=== PATIENT | female | born 1960 | race Two or more races ===

== ENCOUNTER → 2017-01-05 | Outpatient (CLI) | payer OTHER ==
--- NOTE | 2017-01-05 13:31 | REPMRS ---
Patient History The patient states she had a clinical breast exam in Family history of breast cancer in mother at age 65. Digital Woman Screen Mammo: January 05, 2017 - Exam #: [id number] Bilateral CC and MLO view(s) were taken. Technologist: Breanna Harris, Technologist Prior study comparison: September 02, 2015, digital woman screen mammo performed at [facility] to [facility]. June 25, 2014, digital woman screen mammo performed at [facility] to [facility]. FINDINGS: The breast tissue is extremely dense which could obscure a lesion on mammography. There is no evidence of cancer on this mammogram. No significant changes when compared with prior studies. ASSESSMENT: BI-RADS/ACR category 2 mammogram. Benign finding(s). Recommendation Routine screening mammogram of both breasts in 1 year (for women over age 40). This mammogram was interpreted with the aid of an FDA-approved computer-aided dectection system. Electronically Signed By: Angelito Turner MD 01/05/17 [id number]
== END ==
LOC: M WHC 10:16
PROVIDERS: ATTEND Nurse Practitioner Women's Health
DX: Z12.31 Encounter for screening mammogram for malignant neoplasm of breast (principal); Z80.3 Family history of malignant neoplasm of breast

== ENCOUNTER → 2017-01-05 | Outpatient (REF) | payer OTHER | LOC: M SFHCWAGY 11:14 | PROVIDERS: ATTEND Nurse Practitioner Women's Health | DX: Z12.4 Encounter for screening for malignant neoplasm of cervix (principal) ==

== ENCOUNTER → 2017-04-02 | Outpatient (CLI) | payer OTHER ==
[2017-04-02 07:06] LABS: BASO # 0.1 K/mm3 (0.0-0.2); EOS # 0.7 K/mm3 (0.0-0.50); EOS % 8.3 % (0.0-3.0); LARGE UNSTAINED CELL # 0.3 K/mm3 (0.0-0.4); LARGE UNSTAINED CELL % 2.9 % (0.0-4.0); LYMPH # 3.2 K/mm3 (1.5-4.5); LYMPH % 33.9 % (24.0-44.0); MEAN CORPUSCULAR HEMOGLOBIN 29.8 pg (27.0-33.0); MEAN CORPUSCULAR HGB CONC 34.1 g/dl (32.0-36.5); MEAN CORPUSCULAR VOLUME 87.4 fl (80.0-96.0); MONO # 0.5 K/mm3 (0.0-0.8); NEUTROPHILS # 4.1 K/mm3 (1.8-7.7); NEUTROPHILS % 47.9 % (36.0-66.0); PLATELET COUNT, AUTOMATED 267 k/mm3 (150-450); RED CELL DISTRIBUTION WIDTH 13.3 % (11.5-14.5); WHITE BLOOD COUNT 8.6 K/mm3 (4.0-10.0)
[2017-04-02 07:45] LABS: ALBUMIN 3.6 GM/DL (3.2-5.2); ALBUMIN/GLOBULIN RATIO 0.95 (1.00-1.93); ALKALINE PHOSPHATASE 121 U/L (45-117); ALT/SGPT 25 U/L (12-78); ANION GAP 7 MEQ/L (8-16); AST/SGOT 15 U/L (15-37); BILIRUBIN,TOTAL 0.6 MG/DL (0.2-1.0); BLOOD UREA NITROGEN 14 MG/DL (7-18); CARBON DIOXIDE LEVEL 27 MEQ/L (21-32); CHLORIDE LEVEL 106 MEQ/L (98-107); CHOLESTEROL LEVEL 207 MG/DL (<200); FREE T4 1.15 NG/DL (0.76-1.46); GLOMERULAR FILTRATION RATE > 60.0 (>51); GLUCOSE, FASTING 143 MG/DL (70-105); POTASSIUM SERUM 4.5 MEQ/L (3.5-5.1); SODIUM LEVEL 140 MEQ/L (136-145); TOTAL PROTEIN 7.4 GM/DL (6.4-8.2); TRIGLYCERIDES LEVEL 176 MG/DL (<150)
== END ==
LOC: M LAB 06:05
PROVIDERS: ATTEND Family Medicine
DX: E03.9 Hypothyroidism, unspecified (principal); E11.9 Type 2 diabetes mellitus without complications

== ENCOUNTER → 2018-02-24 | Outpatient (CLI) | payer OTHER ==
[2018-02-24 07:32] LABS: ESTIMATED AVERAGE GLUCOSE 154 MG/DL (60-110)
[2018-02-24 08:00] LABS: ANION GAP 4 MEQ/L (8-16); BLOOD UREA NITROGEN 14 MG/DL (7-18); CALCIUM LEVEL 9.2 MG/DL (8.5-10.1); CARBON DIOXIDE LEVEL 30 MEQ/L (21-32); CHLORIDE LEVEL 106 MEQ/L (98-107); GLOMERULAR FILTRATION RATE > 60.0 (>51); GLUCOSE, FASTING 142 MG/DL (70-100); POTASSIUM SERUM 4.6 MEQ/L (3.5-5.1); SODIUM LEVEL 140 MEQ/L (136-145)
== END ==
LOC: M LAB 06:53
DX: E11.9 Type 2 diabetes mellitus without complications (principal)
CPT/HCPCS: 83036

== ENCOUNTER → 2018-03-22 | Outpatient (CLI) | payer OTHER | LOC: M WHC 08:52 | DX: Z12.31 Encounter for screening mammogram for malignant neoplasm of breast (principal) | CPT/HCPCS: 77067 ==

== ENCOUNTER → 2018-05-12 | Outpatient (CLI) | payer OTHER | LOC: M WUC 11:24 | DX: S62.332A Displaced fracture of neck of third metacarpal bone, right hand, initial encounter for closed fracture (principal); X58.XXXA Exposure to other specified factors, initial encounter; Y92.89 Other specified places as the place of occurrence of the external cause | CPT/HCPCS: 73120 ==

== ENCOUNTER → 2018-05-14 | Outpatient (REF) | payer OTHER ==
[2018-05-16 14:39] LABS: HPV HYBRID CAPTURE II Negative (Negative)
== END ==
LOC: M LAB REF 18:42
DX: N95.0 Postmenopausal bleeding (principal)

== ENCOUNTER → 2018-05-28 | Outpatient (CLI) | payer OTHER ==
[2018-05-28 06:42] LABS: BASO # 0.1 10^3/uL (0.0-0.2); BASO % 0.9 % (0.0-1.0); EOS # 0.7 10^3/uL (0.0-0.50); EOS % 7.9 % (0.0-3.0); HEMATOCRIT 41.6 % (36.0-47.0); HEMOGLOBIN 14.4 g/dl (12.0-15.5); IMMATURE GRANULOCYTE % 0.3 % (0-3.0); LYMPH # 2.9 10^3/uL (1.5-4.5); LYMPH % 33.4 % (24.0-44.0); MEAN CORPUSCULAR HGB CONC 34.6 g/dl (32.0-36.5); MEAN CORPUSCULAR VOLUME 83.7 fl (80.0-96.0); MONO # 0.7 10^3/uL (0.0-0.8); MONO % 8.1 % (0.0-5.0); NEUTROPHILS # 4.3 10^3/uL (1.8-7.7); NEUTROPHILS % 49.4 % (36.0-66.0); PLATELET COUNT, AUTOMATED 296 10^3/uL (150-450); RED BLOOD COUNT 4.97 10^6/uL (4.00-5.40); RED CELL DISTRIBUTION WIDTH 13.5 % (11.5-14.5); WHITE BLOOD COUNT 8.8 10^3/uL (4.0-10.0)
[2018-05-28 06:57] LABS: ESTIMATED AVERAGE GLUCOSE 154 MG/DL (60-110)
[2018-05-28 07:17] LABS: ALBUMIN 3.8 GM/DL (3.2-5.2); ALBUMIN/GLOBULIN RATIO 1.09 (1.00-1.93); ALKALINE PHOSPHATASE 147 U/L (45-117); ALT/SGPT 28 U/L (12-78); ANION GAP 9 MEQ/L (8-16); AST/SGOT 16 U/L (7-37); BILIRUBIN,TOTAL 0.4 MG/DL (0.2-1.0); BLOOD UREA NITROGEN 14 MG/DL (7-18); CALCIUM LEVEL 8.6 MG/DL (8.5-10.1); CARBON DIOXIDE LEVEL 26 MEQ/L (21-32); CHLORIDE LEVEL 105 MEQ/L (98-107); CHOLESTEROL LEVEL 208 MG/DL (<200); CREATININE FOR GFR 0.89 MG/DL (0.55-1.30); FREE T4 1.28 NG/DL (0.76-1.46); GLOMERULAR FILTRATION RATE > 60.0 (>51); GLUCOSE, FASTING 142 MG/DL (70-100); HDL CHOLESTEROL 52 MG/DL (>40); LDL CHOLESTEROL 111.6 MG/DL (<100); NON-HDL-C 156 MG/DL; POTASSIUM SERUM 4.5 MEQ/L (3.5-5.1); SODIUM LEVEL 140 MEQ/L (136-145); TOTAL PROTEIN 7.3 GM/DL (6.4-8.2); TRIGLYCERIDES LEVEL 222 MG/DL (<150)
[2018-05-28 07:24] LABS: CREATININE, URINE 99.6 MG/DL; MALB URINE SIEMENS 5.8 MG/L; MAU/CREAT RATIO 5.8 MCG/MG (0.0-30.0)
[2018-05-28 09:26] LABS: TOTAL 25(OH) VITAMIN D 12.1 NG/ML (30.0-100.0)
== END ==
LOC: M LAB 06:03
DX: E11.69 Type 2 diabetes mellitus with other specified complication (principal)
CPT/HCPCS: 84443

== ENCOUNTER → 2018-08-23 | Outpatient (CLI) | payer OTHER ==
[2018-08-23 08:19] LABS: ANION GAP 8 MEQ/L (8-16); BLOOD UREA NITROGEN 15 MG/DL (7-18); CALCIUM LEVEL 9.1 MG/DL (8.5-10.1); CARBON DIOXIDE LEVEL 29 MEQ/L (21-32); CHLORIDE LEVEL 104 MEQ/L (98-107); CREATININE FOR GFR 0.86 MG/DL (0.55-1.30); GLOMERULAR FILTRATION RATE > 60.0 (>51); GLUCOSE, FASTING 113 MG/DL (70-100); POTASSIUM SERUM 4.5 MEQ/L (3.5-5.1); SODIUM LEVEL 141 MEQ/L (136-145)
[2018-08-23 08:43] LABS: ESTIMATED AVERAGE GLUCOSE 143 MG/DL (60-110); HEMOGLOBIN A1c 6.6 %
[2018-08-23 12:47] LABS: TOTAL 25(OH) VITAMIN D 47.2 NG/ML (30.0-100.0)
== END ==
LOC: M LAB 06:19
DX: E11.9 Type 2 diabetes mellitus without complications (principal); E55.9 Vitamin D deficiency, unspecified
CPT/HCPCS: 83036

== ENCOUNTER → 2019-03-07 | Outpatient (CLI) | payer OTHER ==
[2019-03-07 07:32] LABS: BASO # 0.1 10^3/uL (0.0-0.2); EOS # 0.3 10^3/uL (0.0-0.50); HEMATOCRIT 39.5 % (36.0-47.0); LYMPH # 2.6 10^3/uL (1.5-4.5); LYMPH % 37.6 % (24.0-44.0); MEAN CORPUSCULAR HEMOGLOBIN 28.3 pg (27.0-33.0); MEAN CORPUSCULAR HGB CONC 32.9 g/dl (32.0-36.5); MEAN CORPUSCULAR VOLUME 86.1 fl (80.0-96.0); MONO # 0.5 10^3/uL (0.0-0.8); MONO % 7.6 % (0.0-5.0); NEUTROPHILS # 3.3 10^3/uL (1.8-7.7); NEUTROPHILS % 48.5 % (36.0-66.0); PLATELET COUNT, AUTOMATED 262 10^3/uL (150-450); RED BLOOD COUNT 4.59 10^6/uL (4.00-5.40); WHITE BLOOD COUNT 6.8 10^3/uL (4.0-10.0)
[2019-03-07 07:55] LABS: HEMOGLOBIN A1c 6.6 %
[2019-03-07 08:06] LABS: ALBUMIN 3.8 GM/DL (3.2-5.2); ALT/SGPT 20 U/L (12-78); BILIRUBIN,TOTAL 0.4 MG/DL (0.2-1.0); BLOOD UREA NITROGEN 15 MG/DL (7-18); CALCIUM LEVEL 8.9 MG/DL (8.5-10.1); CARBON DIOXIDE LEVEL 28 MEQ/L (21-32); CHLORIDE LEVEL 107 MEQ/L (98-107); CHOLESTEROL LEVEL 200 MG/DL (<200); CHOLESTEROL RISK RATIO 4.444 (<5); GLOMERULAR FILTRATION RATE > 60.0 (>51); GLUCOSE, FASTING 140 MG/DL (70-100); HDL CHOLESTEROL 45 MG/DL (>40); LDL CHOLESTEROL 107 MG/DL (<100); NON-HDL-C 155 MG/DL; POTASSIUM SERUM 4.7 MEQ/L (3.5-5.1); SODIUM LEVEL 138 MEQ/L (136-145); TOTAL PROTEIN 6.7 GM/DL (6.4-8.2); TRIGLYCERIDES LEVEL 240 MG/DL (<150)
== END ==
LOC: M LAB 06:39
PROVIDERS: ATTEND Family Medicine
DX: E11.69 Type 2 diabetes mellitus with other specified complication (principal); E03.9 Hypothyroidism, unspecified

== ENCOUNTER → 2019-03-21 | Outpatient (CLI) | payer OTHER | LOC: M LAB 09:24 | PROVIDERS: ATTEND Family Medicine | DX: Z02.89 Encounter for other administrative examinations (principal) ==

== ENCOUNTER → 2019-04-10 | Outpatient (CLI) | payer OTHER ==
--- NOTE | 2019-04-10 10:16 | REPMRS ---
Patient History The patient states she has not had a clinical breast exam in over a year. Patient is postmenopausal. Family history of breast cancer at age 65 in mother. No Hormone Replacement Therapy 3D TOMOSYNTHESIS WAS PERFORMED. Digital Woman Screen Mammo: April 10, 2019 - Exam #: [id number] Bilateral CC and MLO view(s) were taken. Technologist: Jeannine Magallon, Technologist Prior study comparison: March 22, 2018, digital woman screen mammo performed at [facility]. January 05, 2017, digital woman screen mammo performed at [facility]. FINDINGS: The breast tissue is extremely dense which could obscure a lesion on mammography. There is no evidence of cancer on this mammogram. No significant changes when compared with prior studies. Assessment: BI-RADS/ACR category 2 mammogram. Benign Findings. Recommendation Routine screening mammogram of both breasts in 1 year (for women over age 40). This mammogram was interpreted with the aid of an FDA-approved computer-aided dectection system. THE LIFETIME RISK OF BREAST CANCER IS 22.8 %, THEREFORE SUPPLEMENTAL SCREENING MRI OF THE BREASTS IS RECOMMENDED. Electronically Signed By: Angelito Turner MD 04/10/19 [id number]
== END ==
LOC: M WHC 08:56
PROVIDERS: ATTEND Family Medicine
DX: Z12.31 Encounter for screening mammogram for malignant neoplasm of breast (principal); Z78.0 Asymptomatic menopausal state

== ENCOUNTER → 2019-04-20 | Outpatient (CLI) | payer OTHER ==
[2019-04-20 12:48] LABS: BLOOD UREA NITROGEN 16 MG/DL (7-18); CREATININE FOR GFR 0.89 MG/DL (0.55-1.30); GLOMERULAR FILTRATION RATE > 60.0 (>51)
== END ==
LOC: M LAB 12:03
PROVIDERS: ATTEND Family Medicine
DX: Z01.812 Encounter for preprocedural laboratory examination (principal)

== ENCOUNTER 2019-06-19 07:28 | Day surgery (SDC) | payer OTHER ==
[~2019-06-19] VITALS: Ht 152.4 cm; Wt 62.6 kg
[~2019-06-19 07:28] MED LIST: CLAR10CA3 PO; IBUP200C25 PO; METF500T4 PO; NS 1,000 ML IV ONE; SYNT75TA PO; VITAD1000T PO
[2019-06-19] MEDS ORDERED: PROPOFOL 200 MG/20 ML VIAL As Ordered ONE ×2 (07:46→07:47)
[2019-06-19] MEDS ORDERED: LIDOCAINE 2% INJ 100 MG/5 ML SDV (FOR ANES.) As Ordered ONE (07:47)
--- NOTE | 2019-06-19 09:25 | ROOR ---
Patient Name: Lucretia Florez Procedure Date: 06/19/2019 8:50 AM Date of : 1960 Age: 59 Room: [facility] Gender: Female Note Status: Finalized Procedure: Colonoscopy Indications: Screening for colorectal malignant neoplasm, Last colonoscopy 10 years ago Providers: Remberto Shah MD Referring MD: Renetta Gordon MD Requesting Provider: Medicines: Monitored Anesthesia Care Complications: No immediate complications. Procedure: Pre-Anesthesia Assessment: - Prior to the procedure, a History and Physical was performed, and patient medications and allergies were reviewed. The patient is competent. The risks and benefits of the procedure and the sedation options and risks were discussed with the patient. All questions were answered and informed consent was obtained. Patient identification and proposed procedure were verified by the physician, the nurse and the anesthesiologist in the procedure room. Mental Status Examination: alert and oriented. Airway Examination: normal oropharyngeal airway and neck mobility. CV Examination: regular rate and rhythm. Prophylactic Antibiotics: The patient does not require prophylactic antibiotics. Prior Anticoagulants: The patient has taken no previous anticoagulant or antiplatelet agents. ASA Grade Assessment: II - A patient with mild systemic disease. After reviewing the risks and benefits, the patient was deemed in satisfactory condition to undergo the procedure. The anesthesia plan was to use monitored anesthesia care (MAC). Immediately prior to administration of medications, the patient was re-assessed for adequacy to receive sedatives. The heart rate, respiratory rate, oxygen saturations, blood pressure, adequacy of pulmonary ventilation, and response to care were monitored throughout the procedure. The physical status of the patient was re-assessed after the procedure. The Colonoscope was introduced through the anus and advanced to the terminal ileum. The colonoscopy was performed without difficulty. The patient tolerated the procedure well. The quality of the bowel preparation was excellent. Findings: The perianal and digital rectal examinations were normal. The terminal ileum appeared normal. The colon (entire examined portion) appeared normal. Impression: - The examined portion of the ileum was normal. - The entire examined colon is normal. - No specimens collected. Recommendation: - Discharge patient to home. - Resume previous diet. - Continue present medications. - Repeat colonoscopy in 10 years for screening purposes. Remberto Shah MD Remberto Shah MD 06/19/2019 9:25:00 AM Electronically signed by Remberto Shah MD Number of Addenda: 0 Note Initiated On: 06/19/2019 8:50 AM Estimated Blood Loss: Estimated blood loss: none.
[2019-06-19 09:42] VITALS: BP 125/60
== END 2019-06-19 09:53 | disposition home or self-care (01) ==
LOC: M OPP 07:28
PROVIDERS: ATTEND Surgery
DX: Z12.11 Encounter for screening for malignant neoplasm of colon (principal); E11.9 Type 2 diabetes mellitus without complications; E03.9 Hypothyroidism, unspecified; Z79.84 Long term (current) use of oral hypoglycemic drugs; Z79.899 Other long term (current) drug therapy

== ENCOUNTER → 2019-09-03 | Outpatient (CLI) | payer OTHER ==
[~2019-09-03] MED LIST changes: +CHOL100029 PO; +METF-791 PO; -METF500T4 PO; -NS 1,000 ML IV ONE; -VITAD1000T PO
[2019-09-03 07:01] LABS: HEMOGLOBIN A1c 6.6 %
[2019-09-03 07:17] LABS: ALBUMIN 3.7 GM/DL (3.2-5.2); ALT/SGPT 25 U/L (12-78); BILIRUBIN,TOTAL 0.3 MG/DL (0.2-1.0); BLOOD UREA NITROGEN 14 MG/DL (7-18); CALCIUM LEVEL 9.1 MG/DL (8.5-10.1); CARBON DIOXIDE LEVEL 25 MEQ/L (21-32); CHLORIDE LEVEL 107 MEQ/L (98-107); GLOMERULAR FILTRATION RATE > 60.0 (>51); GLUCOSE, FASTING 140 MG/DL (70-100); POTASSIUM SERUM 4.4 MEQ/L (3.5-5.1); SODIUM LEVEL 140 MEQ/L (136-145)
== END ==
LOC: M LAB 06:07
PROVIDERS: ATTEND Family Medicine
DX: E11.9 Type 2 diabetes mellitus without complications (principal); E03.9 Hypothyroidism, unspecified

== ENCOUNTER → 2019-09-05 | Outpatient (REF) | payer OTHER ==
[2019-09-05 14:48] LABS: MALB URINE SIEMENS 23.8 MG/L; MAU/CREAT RATIO 13.4 MCG/MG (0.0-30.0)
== END ==
LOC: M LAB REF 13:28
PROVIDERS: ATTEND Family Medicine
DX: E11.69 Type 2 diabetes mellitus with other specified complication (principal)

== ENCOUNTER → 2020-03-05 | Outpatient (CLI) | payer OTHER ==
[2020-03-05 06:29] LABS: BASO # 0.1 10^3/uL (0.0-0.2); BASO % 1.1 % (0.0-1.0); EOS # 0.3 10^3/uL (0.0-0.5); EOS % 3.9 % (0.0-3.0); HEMATOCRIT 41.5 % (36.0-47.0); HEMOGLOBIN 13.6 g/dl (12.0-15.5); LYMPH # 2.9 10^3/uL (1.5-5.0); MEAN CORPUSCULAR HEMOGLOBIN 27.9 pg (27.0-33.0); MEAN CORPUSCULAR HGB CONC 32.8 g/dl (32.0-36.5); MEAN CORPUSCULAR VOLUME 85.2 fl (80.0-96.0); MONO # 0.6 10^3/uL (0.0-0.8); MONO % 7.4 % (0.0-5.0); NEUTROPHILS # 3.6 10^3/uL (1.5-8.5); NEUTROPHILS % 48.3 % (36.0-66.0); PLATELET COUNT, AUTOMATED 288 10^3/uL (150-450); RED BLOOD COUNT 4.87 10^6/uL (4.00-5.40); WHITE BLOOD COUNT 7.5 10^3/uL (4.0-10.0)
[2020-03-05 06:58] LABS: ALBUMIN 3.9 GM/DL (3.2-5.2); ALT/SGPT 26 U/L (12-78); BILIRUBIN,TOTAL 0.4 MG/DL (0.2-1.0); BLOOD UREA NITROGEN 12 MG/DL (7-18); CALCIUM LEVEL 9.1 MG/DL (8.5-10.1); CARBON DIOXIDE LEVEL 26 MEQ/L (21-32); CHLORIDE LEVEL 105 MEQ/L (98-107); CHOLESTEROL LEVEL 228 MG/DL (<200); CREATININE FOR GFR 0.87 MG/DL (0.55-1.30); FREE T4 1.32 NG/DL (0.76-1.46); GLOMERULAR FILTRATION RATE > 60.0 (>51); GLUCOSE, FASTING 157 MG/DL (70-100); HDL CHOLESTEROL 51 MG/DL (>40); LDL CHOLESTEROL 124 MG/DL (<100); NON-HDL-C 177 MG/DL; POTASSIUM SERUM 4.4 MEQ/L (3.5-5.1); SODIUM LEVEL 137 MEQ/L (136-145); TOTAL PROTEIN 7.4 GM/DL (6.4-8.2); TRIGLYCERIDES LEVEL 263 MG/DL (<150)
[2020-03-05 08:04] LABS: HEMOGLOBIN A1c 6.9 %
== END ==
LOC: M LAB 06:00
PROVIDERS: ATTEND Family Medicine
DX: E11.69 Type 2 diabetes mellitus with other specified complication (principal); E03.9 Hypothyroidism, unspecified

== ENCOUNTER → 2020-09-16 | Outpatient (CLI) | payer OTHER ==
[~2020-09-16] MED LIST changes: -METF-791 PO; +METF-838 PO
[2020-09-16 07:03] LABS: ALBUMIN 3.6 GM/DL (3.2-5.2); ALT/SGPT 32 U/L (12-78); BILIRUBIN,TOTAL 0.3 MG/DL (0.2-1.0); BLOOD UREA NITROGEN 11 MG/DL (7-18); CALCIUM LEVEL 9.1 MG/DL (8.5-10.1); CARBON DIOXIDE LEVEL 26 MEQ/L (21-32); CHLORIDE LEVEL 106 MEQ/L (98-107); CHOLESTEROL LEVEL 186 MG/DL (<200); CREATININE FOR GFR 0.82 MG/DL (0.55-1.30); GLOMERULAR FILTRATION RATE > 60.0 (>51); GLUCOSE, FASTING 155 MG/DL (70-100); HDL CHOLESTEROL 50 MG/DL (>40); LDL CHOLESTEROL 96 MG/DL (<100); NON-HDL-C 136 MG/DL; POTASSIUM SERUM 4.3 MEQ/L (3.5-5.1); SODIUM LEVEL 139 MEQ/L (136-145); TOTAL PROTEIN 7.4 GM/DL (6.4-8.2); TRIGLYCERIDES LEVEL 201 MG/DL (<150)
== END ==
LOC: M LAB 06:03
PROVIDERS: ATTEND Family Medicine
DX: E11.9 Type 2 diabetes mellitus without complications (principal)

== ENCOUNTER → 2020-09-17 | Outpatient (REF) | payer OTHER ==
[2020-09-17 13:39] LABS: MALB URINE SIEMENS 12.5 MG/L; MAU/CREAT RATIO 11.7 MCG/MG (0.0-30.0)
== END ==
LOC: M LAB REF 11:48
PROVIDERS: ATTEND Family Medicine
DX: E11.9 Type 2 diabetes mellitus without complications (principal)

== ENCOUNTER → 2020-10-08 | Outpatient (CLI) | payer OTHER ==
--- NOTE | 2020-10-08 16:37 | REPMRS ---
Patient History The patient states she has not had a clinical breast exam in over a year. Family history of breast cancer at age 65 in mother. No Hormone Replacement Therapy 3D TOMOSYNTHESIS WAS PERFORMED. Alo breast density c. Digital Woman Screen Mammo: October 08, 2020 - Exam #: [id number] Bilateral CC and MLO view(s) were taken. Technologist: Manuela Velasquez, Technologist Prior study comparison: April 10, 2019, bilateral digital woman screen mammo performed at [facility]. March 22, 2018, digital woman screen mammo performed at [facility]. FINDINGS: The breast tissue is heterogeneously dense. This may lower the sensitivity of mammography. There has been no change in the appearance of the mammogram from the prior studies. There is a moderate amount of residual fibroglandular tissue which is fairly symmetric. There is no interval development of dominant mass, areas of architectural distortion, or clustered microcalcification typical of malignancy. Assessment: BI-RADS/ACR category 1 mammogram. Negative Mammogram. Recommendation Routine screening mammogram in 1 year (for women over age 40). This mammogram was interpreted with the aid of an FDA-approved computer-aided dectection system. THE LIFETIME RISK OF BREAST CANCER IS 22.2%, THEREFORE SUPPLEMENTAL SCREENING MRI OF THE BREASTS IS RECOMMENDED IN 6 MONTHS. Electronically Signed By: Angelito Turner MD 10/08/20 [id number]
== END ==
LOC: M WHC 15:45
PROVIDERS: ATTEND Nurse Practitioner Family
DX: Z12.31 Encounter for screening mammogram for malignant neoplasm of breast (principal); Z80.3 Family history of malignant neoplasm of breast; Z15.01 Genetic susceptibility to malignant neoplasm of breast

== ENCOUNTER → 2021-03-01 | Outpatient (CLI) | payer OTHER ==
[2021-03-01 12:12] LABS: HEMOGLOBIN A1c 7.1 %
== END ==
LOC: M LAB 10:31
PROVIDERS: ATTEND Family Medicine
DX: E11.9 Type 2 diabetes mellitus without complications (principal)

== ENCOUNTER → 2021-06-03 | Outpatient (CLI) | payer OTHER ==
[2021-06-03 11:06] LABS: BASO # 0.1 10^3/uL (0.0-0.2); BASO % 0.9 % (0.0-1.0); EOS # 0.4 10^3/uL (0.0-0.5); EOS % 5.8 % (0.0-3.0); HEMATOCRIT 41.6 % (36.0-47.0); HEMOGLOBIN 13.5 g/dl (12.0-15.5); LYMPH # 2.9 10^3/uL (1.5-5.0); LYMPH % 38.3 % (24.0-44.0); MEAN CORPUSCULAR HGB CONC 32.5 g/dl (32.0-36.5); MEAN CORPUSCULAR VOLUME 86.3 fl (80.0-96.0); MONO # 0.6 10^3/uL (0.0-0.8); MONO % 7.5 % (2.0-8.0); NEUTROPHILS # 3.5 10^3/uL (1.5-8.5); NEUTROPHILS % 47.1 % (36.0-66.0); PLATELET COUNT, AUTOMATED 294 10^3/uL (150-450); RED BLOOD COUNT 4.82 10^6/uL (4.00-5.40); WHITE BLOOD COUNT 7.5 10^3/uL (4.0-10.0)
[2021-06-03 11:34] LABS: HEMOGLOBIN A1c 7.1 %
[2021-06-03 11:46] LABS: MALB URINE SIEMENS 13.6 MG/L; MAU/CREAT RATIO 10.3 MCG/MG (0.0-30.0)
[2021-06-03 12:12] LABS: ALBUMIN 3.8 GM/DL (3.2-5.2); ALT/SGPT 29 U/L (12-78); BILIRUBIN,TOTAL 0.3 MG/DL (0.2-1.0); BLOOD UREA NITROGEN 16 MG/DL (7-18); CALCIUM LEVEL 9.2 MG/DL (8.8-10.2); CARBON DIOXIDE LEVEL 29 MEQ/L (21-32); CHLORIDE LEVEL 110 MEQ/L (98-107); CREATININE FOR GFR 0.82 MG/DL (0.55-1.30); FREE T4 1.19 NG/DL (0.76-1.46); GLOMERULAR FILTRATION RATE > 60.0 (>45); GLUCOSE, FASTING 183 MG/DL (70-100); POTASSIUM SERUM 4.5 MEQ/L (3.5-5.1); SODIUM LEVEL 134 MEQ/L (136-145); TOTAL PROTEIN 7.3 GM/DL (6.4-8.2)
== END ==
LOC: M LAB 10:19
PROVIDERS: ATTEND Family Medicine
DX: E11.9 Type 2 diabetes mellitus without complications (principal)

== ENCOUNTER → 2021-09-09 | Outpatient (CLI) | payer OTHER ==
[2021-09-09 12:30] LABS: HEMOGLOBIN A1c 6.9 %
== END ==
LOC: M LAB 11:18
PROVIDERS: ATTEND Family Medicine
DX: E03.9 Hypothyroidism, unspecified (principal)

== ENCOUNTER → 2021-12-29 | Outpatient (CLI) | payer OTHER | LOC: M LAB 06:09 | PROVIDERS: ATTEND Allergy & Immunology | DX: Z91.018 Allergy to other foods (principal); J30.1 Allergic rhinitis due to pollen ==

== ENCOUNTER → 2022-01-06 | Outpatient (REF) | LOC: M EMP 10:54 | PROVIDERS: ATTEND Nurse Practitioner Adult Health | DX: Z00.00 Encounter for general adult medical examination without abnormal findings (principal) ==

== ENCOUNTER → 2022-01-11 | Outpatient (REF) | LOC: M RAD 11:24 | PROVIDERS: ATTEND Nurse Practitioner Adult Health | DX: Z11.52 Encounter for screening for COVID-19 (principal) ==

== ENCOUNTER → 2022-05-02 | Outpatient (CLI) | payer OTHER ==
[2022-05-02 15:49] LABS: BASO # 0.1 10^3/uL (0.0-0.2); BASO % 1.1 % (0.0-1.0); EOS # 0.2 10^3/uL (0.0-0.5); EOS % 2.7 % (0.0-3.0); HEMATOCRIT 40.4 % (36.0-47.0); HEMOGLOBIN 13.2 g/dl (12.0-15.5); LYMPH # 3.1 10^3/uL (1.5-5.0); LYMPH % 36.5 % (24.0-44.0); MEAN CORPUSCULAR HEMOGLOBIN 28.5 pg (27.0-33.0); MEAN CORPUSCULAR HGB CONC 32.7 g/dl (32.0-36.5); MEAN CORPUSCULAR VOLUME 87.3 fl (80.0-96.0); MONO # 0.6 10^3/uL (0.0-0.8); MONO % 7.4 % (2.0-8.0); NEUTROPHILS # 4.4 10^3/uL (1.5-8.5); NEUTROPHILS % 52.1 % (36.0-66.0); PLATELET COUNT, AUTOMATED 313 10^3/uL (150-450); RED BLOOD COUNT 4.63 10^6/uL (4.00-5.40); WHITE BLOOD COUNT 8.5 10^3/uL (4.0-10.0)
== END ==
LOC: M PLALAB 12:42
PROVIDERS: ATTEND Nurse Practitioner Family
DX: M25.571 Pain in right ankle and joints of right foot (principal)

== ENCOUNTER → 2022-05-09 | Outpatient (CLI) | payer OTHER | LOC: M WUC 12:04 | PROVIDERS: ATTEND Family Medicine | DX: M79.671 Pain in right foot (principal) ==

== ENCOUNTER → 2022-05-15 | Outpatient (REF) | payer OTHER ==
[2022-05-15 21:57] LABS: AMORPHOUS SEDIMENT MODERATE (NEGATIVE); APPEARANCE, URINE TURBID (CLEAR); BACTERIA, URINE AUTO 1+ (NEGATIVE); BILIRUBIN, URINE AUTO NEGATIVE (NEGATIVE); BLOOD, URINE BLOOD 3+ (NEGATIVE); CALCIUM OXALATE CRYSTALS LARGE; COLOR, URINE AMBER (YELLOW); GLUCOSE, URINE (UA) AUTO 1+ mg/dL (NEGATIVE); KETONE, URINE AUTO NEGATIVE (NEGATIVE); LEUKOCYTE ESTERASE, URINE AUTO 2+ (NEGATIVE); NITRITE, URINE AUTO NEGATIVE (NEGATIVE); PROTEIN, URINE AUTO 2+ mg/dL (NEGATIVE); RBC, URINE AUTO 125 /HPF (0-3); SPECIFIC GRAVITY URINE AUTO 1.026 (1.002-1.035); SQUAMOUS EPITHELIAL CELL UR AU 2 /HPF (0-6); UROBILINOGEN, URINE AUTO 0.2 mg/dL (0.0-2.0); WBC, URINE AUTO 106 /HPF (0-3)
== END ==
LOC: M LAB REF 21:25
PROVIDERS: ATTEND Physician Assistant Medical
DX: N39.0 Urinary tract infection, site not specified (principal)

== ENCOUNTER → 2022-06-21 | Outpatient (CLI) | payer OTHER ==
[2022-06-21 07:28] LABS: CREATININE, URINE 39.5 MG/DL; MALB URINE SIEMENS < 5.0 MG/L; MAU/CREAT RATIO 12.6 MCG/MG (0.0-30.0)
[2022-06-21 07:30] LABS: ALBUMIN 3.6 GM/DL (3.2-5.2); ALT/SGPT 27 U/L (12-78); BILIRUBIN,TOTAL 0.5 MG/DL (0.2-1.0); BLOOD UREA NITROGEN 13 MG/DL (7-18); CALCIUM LEVEL 9.3 MG/DL (8.8-10.2); CARBON DIOXIDE LEVEL 26 MEQ/L (21-32); CHLORIDE LEVEL 107 MEQ/L (98-107); CHOLESTEROL LEVEL 207 MG/DL (<200); CHOLESTEROL RISK RATIO 4.224 (<5); CREATININE FOR GFR 0.78 MG/DL (0.55-1.30); FREE T4 1.08 NG/DL (0.76-1.46); GLOMERULAR FILTRATION RATE > 60.0 (>45); GLUCOSE, FASTING 215 MG/DL (70-100); HDL CHOLESTEROL 49 MG/DL (>40); LDL CHOLESTEROL 104 MG/DL (<100); NON-HDL-C 158 MG/DL; POTASSIUM SERUM 4.3 MEQ/L (3.5-5.1); SODIUM LEVEL 138 MEQ/L (136-145); TOTAL PROTEIN 7.3 GM/DL (6.4-8.2); TRIGLYCERIDES LEVEL 270 MG/DL (<150)
[2022-06-21 07:50] LABS: HEMOGLOBIN A1c 8.2 %
== END ==
LOC: M LAB 06:02
PROVIDERS: ATTEND Family Medicine
DX: E11.69 Type 2 diabetes mellitus with other specified complication (principal); E03.9 Hypothyroidism, unspecified

== ENCOUNTER → 2022-10-03 | Outpatient (CLI) | payer OTHER ==
[2022-10-03 07:53] LABS: HEMOGLOBIN A1c 6.9 %
[2022-10-03 08:19] LABS: FREE T4 1.32 NG/DL (0.76-1.46); THYROID STIMULATING HORMONE 1.35 uIU/ML (0.358-3.740)
== END ==
LOC: M LAB 06:51
PROVIDERS: ATTEND Family Medicine
DX: E11.9 Type 2 diabetes mellitus without complications (principal)

== ENCOUNTER → 2023-03-26 | Outpatient (CLI) | payer OTHER ==
[2023-03-26 06:52] LABS: APPEARANCE, URINE CLEAR (CLEAR); BACTERIA, URINE AUTO NEGATIVE (NEGATIVE); BILIRUBIN, URINE AUTO NEGATIVE (NEGATIVE); BLOOD, URINE BLOOD NEGATIVE (NEGATIVE); COLOR, URINE YELLOW (YELLOW); GLUCOSE, URINE (UA) AUTO NEGATIVE (NEGATIVE); KETONE, URINE AUTO NEGATIVE (NEGATIVE); LEUKOCYTE ESTERASE, URINE AUTO NEGATIVE (NEGATIVE); NITRITE, URINE AUTO NEGATIVE (NEGATIVE); PROTEIN, URINE AUTO NEGATIVE (NEGATIVE); RBC, URINE AUTO 0 /HPF (0-3); SPECIFIC GRAVITY URINE AUTO 1.014 (1.002-1.035); SQUAMOUS EPITHELIAL CELL UR AU 2 /HPF (0-6); UROBILINOGEN, URINE AUTO 0.2 mg/dL (0.0-2.0); WBC, URINE AUTO 1 /HPF (0-3)
[2023-03-26 07:18] LABS: MALB URINE SIEMENS < 3.0 MG/L; MAU/CREAT RATIO 2.5 MCG/MG (0.0-30.0)
[2023-03-26 07:20] LABS: ALBUMIN 3.7 G/DL (3.2-5.2); ALKALINE PHOSPHATASE 98 U/L (46-116); ALT/SGPT 14 U/L (7.0-40); AST/SGOT 15 U/L (<34); BILIRUBIN,TOTAL 0.4 MG/DL (0.3-1.2); BLOOD UREA NITROGEN 12 MG/DL (9-23); CALCIUM LEVEL 9.3 MG/DL (8.3-10.6); CARBON DIOXIDE LEVEL 27 MMOL/L (20-31); CHLORIDE LEVEL 106 MMOL/L (98-107); CHOLESTEROL LEVEL 159 MG/DL (<200); CHOLESTEROL RISK RATIO 2.97 (<5); CREATININE FOR GFR 0.77 MG/DL (0.55-1.30); GLOMERULAR FILTRATION RATE > 60.0 (>45); GLUCOSE, FASTING 113 MG/DL (74-106); HDL CHOLESTEROL 53.5 MG/DL (>40); LDL CHOLESTEROL 74.7 MG/DL (<100); NON-HDL-C 105.5 MG/DL; POTASSIUM SERUM 4.1 MMOL/L (3.5-5.1); SODIUM LEVEL 136 MMOL/L (136-145); TOTAL PROTEIN 6.9 G/DL (5.7-8.2); TRIGLYCERIDES LEVEL 154 MG/DL (<150)
[2023-03-26 07:23] LABS: THYROID STIMULATING HORMONE 1.063 uIU/ML (0.55-4.78)
[2023-03-26 07:43] LABS: HEMOGLOBIN A1c 6.4 % (4.0-6.0)
== END ==
LOC: M LAB 06:16
PROVIDERS: ATTEND Registered Nurse
DX: E11.69 Type 2 diabetes mellitus with other specified complication (principal)

== ENCOUNTER → 2023-09-26 | Outpatient (CLI) | payer OTHER ==
[2023-09-26 15:20] LABS: HEMOGLOBIN A1c 6.3 % (4.0-6.0)
[2023-09-26 15:28] LABS: ALBUMIN 3.8 G/DL (3.2-5.2); ALKALINE PHOSPHATASE 121 U/L (46-116); ALT/SGPT 12 U/L (7.0-40); AST/SGOT 11 U/L (<34); BILIRUBIN,TOTAL 0.4 MG/DL (0.3-1.2); BLOOD UREA NITROGEN 16 MG/DL (9-23); CALCIUM LEVEL 10.1 MG/DL (8.3-10.6); CARBON DIOXIDE LEVEL 29 MMOL/L (20-31); CHLORIDE LEVEL 102 MMOL/L (98-107); CREATININE FOR GFR 0.76 MG/DL (0.55-1.30); GLOMERULAR FILTRATION RATE > 60.0 (>45); GLUCOSE, FASTING 98 MG/DL (74-106); POTASSIUM SERUM 4.2 MMOL/L (3.5-5.1); SODIUM LEVEL 137 MMOL/L (136-145); TOTAL PROTEIN 7.1 G/DL (5.7-8.2)
== END ==
LOC: M LAB 14:35
PROVIDERS: ATTEND Family Medicine
DX: E11.69 Type 2 diabetes mellitus with other specified complication (principal)

== ENCOUNTER → 2023-12-28 | Outpatient (CLI) | payer OTHER ==
[2023-12-28 11:43] LABS: HEMOGLOBIN A1c 6.5 % (4.0-6.0)
== END ==
LOC: M LAB 10:37
PROVIDERS: ATTEND Family Medicine
DX: E11.69 Type 2 diabetes mellitus with other specified complication (principal)

== ENCOUNTER → 2024-06-27 | Outpatient (CLI) | payer OTHER ==
[2024-06-27 07:39] LABS: BASO # 0.1 10^3/uL (0.0-0.2); BASO % 1.2 % (0.0-1.0); EOS # 0.3 10^3/uL (0.0-0.5); HEMOGLOBIN 13.5 g/dl (12.0-15.5); LYMPH # 2.6 10^3/uL (1.5-5.0); LYMPH % 37.8 % (24.0-44.0); MEAN CORPUSCULAR HEMOGLOBIN 29.3 pg (27.0-33.0); MEAN CORPUSCULAR HGB CONC 33.8 g/dl (32.0-36.5); MEAN CORPUSCULAR VOLUME 86.8 fl (80.0-96.0); MONO # 0.5 10^3/uL (0.0-0.8); MONO % 7.7 % (2.0-8.0); NEUTROPHILS # 3.3 10^3/uL (1.5-8.5); NEUTROPHILS % 49.2 % (36.0-66.0); PLATELET COUNT, AUTOMATED 290 10^3/uL (150-450); RED BLOOD COUNT 4.61 10^6/uL (4.00-5.40); WHITE BLOOD COUNT 6.8 10^3/uL (4.0-10.0)
[2024-06-27 08:09] LABS: CREATININE, URINE 99.2 MG/DL; MALB URINE SIEMENS < 3.0 MG/L
[2024-06-27 08:11] LABS: ALBUMIN 3.7 G/DL (3.2-5.2); ALKALINE PHOSPHATASE 120 U/L (46-116); ALT/SGPT 14 U/L (7.0-40); AST/SGOT 11 U/L (<34); BILIRUBIN,TOTAL 0.6 MG/DL (0.3-1.2); BLOOD UREA NITROGEN 11 MG/DL (9-23); CALCIUM LEVEL 9.3 MG/DL (8.3-10.6); CARBON DIOXIDE LEVEL 28 MMOL/L (20-31); CHLORIDE LEVEL 105 MMOL/L (98-107); CHOLESTEROL LEVEL 195 MG/DL (<200); CREATININE FOR GFR 0.74 MG/DL (0.55-1.30); GLOMERULAR FILTRATION RATE > 60.0 (>45); GLUCOSE, FASTING 149 MG/DL (74-106); HDL CHOLESTEROL 52.7 MG/DL (>40); LDL CHOLESTEROL 103.3 MG/DL (<100); NON-HDL-C 142.3 MG/DL; POTASSIUM SERUM 4.3 MMOL/L (3.5-5.1); SODIUM LEVEL 137 MMOL/L (136-145); TOTAL PROTEIN 6.9 G/DL (5.7-8.2); TRIGLYCERIDES LEVEL 195 MG/DL (<150)
[2024-06-27 08:13] LABS: FREE T4 1.16 NG/DL (0.89-1.76); THYROID STIMULATING HORMONE 2.541 uIU/ML (0.55-4.78)
[2024-06-27 08:30] LABS: HEMOGLOBIN A1c 6.6 % (4.0-6.0)
== END ==
LOC: M LAB 06:56
PROVIDERS: ATTEND Family Medicine
DX: E11.69 Type 2 diabetes mellitus with other specified complication (principal); E03.9 Hypothyroidism, unspecified

== ENCOUNTER → 2025-01-10 | Outpatient (CLI) | payer OTHER ==
[2025-01-10 10:25] LABS: HEMOGLOBIN A1c 6.8 % (4.0-6.0)
[2025-01-10 10:46] LABS: FREE T4 1.47 NG/DL (0.89-1.76); THYROID STIMULATING HORMONE 5.927 uIU/ML (0.55-4.78)
== END ==
LOC: M LAB 09:32
PROVIDERS: ATTEND Family Medicine
DX: E11.69 Type 2 diabetes mellitus with other specified complication (principal)

== ENCOUNTER → 2025-06-23 | Outpatient (REF) | payer OTHER | LOC: M LAB REF 09:20 | PROVIDERS: ATTEND Registered Nurse | DX: R19.7 Diarrhea, unspecified (principal) ==

== ENCOUNTER → 2025-07-09 | Outpatient (CLI) | payer OTHER ==
[2025-07-09 07:42] LABS: BASO # 0.1 10^3/uL (0.0-0.2); BASO % 1.1 % (0.0-1.0); EOS # 0.4 10^3/uL (0.0-0.5); EOS % 5.9 % (0.0-3.0); LYMPH # 2.5 10^3/uL (1.5-5.0); LYMPH % 37.4 % (24.0-44.0); MONO # 0.5 10^3/uL (0.0-0.8); MONO % 7.6 % (2.0-8.0); NEUTROPHILS # 3.2 10^3/uL (1.5-8.5); NEUTROPHILS % 47.8 % (36.0-66.0); PLATELET COUNT, AUTOMATED 290 10^3/uL (150-450)
[2025-07-09 08:09] LABS: CREATININE, URINE 69.7 MG/DL; MALB URINE SIEMENS < 3.0 MG/L
[2025-07-09 08:22] LABS: ALT/SGPT 17 U/L (7.0-40); AST/SGOT 14 U/L (<34); CALCIUM LEVEL 8.9 MG/DL (8.3-10.6); CARBON DIOXIDE LEVEL 26 MMOL/L (20-31); CHLORIDE LEVEL 104 MMOL/L (98-107); CHOLESTEROL LEVEL 205 MG/DL (<200); CHOLESTEROL RISK RATIO 4.10 (<5); CREATININE FOR GFR 0.73 MG/DL (0.55-1.30); FREE T4 1.16 NG/DL (0.89-1.76); GLOMERULAR FILTRATION RATE > 90.0 (>45); LDL CHOLESTEROL 113.9 MG/DL (<100); NON-HDL-C 155.1 MG/DL; POTASSIUM SERUM 4.8 MMOL/L (3.5-5.1); SODIUM LEVEL 140 MMOL/L (136-145); TRIGLYCERIDES LEVEL 206 MG/DL (<150)
[2025-07-09 08:40] LABS: ESTIMATED AVERAGE GLUCOSE 174.0 MG/DL (60-110)
== END ==
LOC: M LAB 06:58
PROVIDERS: ATTEND Family Medicine
DX: E11.69 Type 2 diabetes mellitus with other specified complication (principal); E03.9 Hypothyroidism, unspecified